=== PATIENT | female | born 2000 | race Caucasian/White ===

== ENCOUNTER 2023-06-05 21:13 | Inpatient (IN) | payer OTHER ==
[~2023-06-05] VITALS: Ht 162.6 cm; Wt 97.6 kg
[2023-06-05] MEDS ORDERED: WELLTAB40 PO ×2 (21:24→23:02)
[2023-06-05 21:51] LABS: HEMATOCRIT 37.6 % (36.0-47.0); HEMOGLOBIN 12.4 g/dl (12.0-15.5); MEAN CORPUSCULAR HEMOGLOBIN 29.5 pg (27.0-33.0); MEAN CORPUSCULAR VOLUME 89.3 fl (80.0-96.0); PLATELET COUNT, AUTOMATED 238 10^3/uL (150-450); RED BLOOD COUNT 4.21 10^6/uL (4.00-5.40); WHITE BLOOD COUNT 7.7 10^3/uL (4.0-10.0)
[2023-06-05 22:13] LABS: AMPHETAMINES LEVEL URINE NEGATIVE (NEGATIVE); BARBITURATES URINE NEGATIVE (NEGATIVE); BENZODIAZEPINES URINE NEGATIVE (NEGATIVE); COCAINE METABOLITE URINE NEGATIVE (NEGATIVE); METHADONE URINE NEGATIVE (NEGATIVE); OPIATES URINE NEGATIVE (NEGATIVE)
[2023-06-05 22:14] LABS: CANNABINOIDS URINE NEGATIVE (NEGATIVE); PHENCYCLIDINE URINE NEGATIVE (NEGATIVE)
[2023-06-05 22:15] LABS: ETHYL ALCOHOL (ETHANOL) < 0.003 % (0.000-0.010)
[2023-06-05 22:17] LABS: ACETAMINOPHEN LEVEL < 2.0 UG/ML (10.0-20.0); ALBUMIN 3.6 G/DL (3.2-5.2); ALKALINE PHOSPHATASE 103 U/L (46-116); ALT/SGPT 20 U/L (7.0-40); AST/SGOT 18 U/L (<34); BILIRUBIN,DIRECT < 0.1 MG/DL (<0.4); BILIRUBIN,TOTAL 0.2 MG/DL (0.3-1.2); BLOOD UREA NITROGEN 15 MG/DL (9-23); CALCIUM LEVEL 8.9 MG/DL (8.5-10.1); CARBON DIOXIDE LEVEL 25 MMOL/L (20-31); CHLORIDE LEVEL 109 MMOL/L (98-107); CREATININE FOR GFR 0.69 MG/DL (0.55-1.30); GLOMERULAR FILTRATION RATE > 60.0 (>60); GLUCOSE, FASTING 94 MG/DL (60-100); POTASSIUM SERUM 3.9 MMOL/L (3.5-5.1); SALICYLATE LEVEL < 3.0 MG/DL (<30); SODIUM LEVEL 141 MMOL/L (136-145); TOTAL PROTEIN 6.8 G/DL (5.7-8.2)
[2023-06-05 22:21] LABS: THYROID STIMULATING HORMONE 0.769 uIU/ML (0.55-4.78)
[2023-06-05 22:51] LABS: HCG, SERUM QUALITATIVE NEGATIVE (NEGATIVE)
[2023-06-05] MEDS ORDERED: HOME MED LIST COMPLETE! XX SCH (23:05)
[2023-06-06] MEDS ORDERED: ACETAMINOPHEN 325 MG TAB PO ONE (09:45)
[2023-06-06] MEDS ORDERED: MAALOX 30 ML SUSP *UDC PO PRN (14:40)
[2023-06-06] MEDS ORDERED: diphenhydrAMINE 25MG CAP PO PRN (14:40)
[2023-06-06] MEDS ORDERED: MOM 30ML SUSPENSION UDC PO PRN (14:40)
[2023-06-06] MEDS: IBUPROFEN 400MG TAB PO PRN (15:15)
[2023-06-06 15:37] VITALS: BP 134/83; TEMP 97.4; O2SAT 100
[2023-06-06] MEDS: ACETAMINOPHEN TAB 650MG DOSE (2X325MG) PO PRN (20:31)
[2023-06-06] MEDS ORDERED: buPROPion **XL** TABLET 150MG (WELLBUTRIN XL) PO SCH (21:00)
[2023-06-06] MEDS: traZODone 50 MG TAB PO PRN (21:47)
[2023-06-07 06:17] VITALS: BP 128/75; TEMP 98; O2SAT 100
[2023-06-07] MEDS ORDERED: NICOTINE 14 MG/24 HR TRANSDERMAL TD SCH (09:00)
[2023-06-07] MEDS: buPROPion **XL** TABLET 150MG (WELLBUTRIN XL) PO SCH (09:35)
[2023-06-07] MEDS: IBUPROFEN 400MG TAB PO PRN (09:36)
[2023-06-07] MEDS: lamoTRIgine 25MG TAB PO SCH (14:15)
[2023-06-07] MEDS: ACETAMINOPHEN TAB 650MG DOSE (2X325MG) PO PRN (15:23)
[2023-06-07 18:54] VITALS: BP 141/77; TEMP 97.5
[2023-06-08] MEDS: traZODone 50 MG TAB PO PRN ×2 (01:30→21:10)
[2023-06-08 06:11] VITALS: BP 113/66; TEMP 97.5; O2SAT 98
[2023-06-08] MEDS: buPROPion **XL** TABLET 150MG (WELLBUTRIN XL) PO SCH (09:53)
[2023-06-08] MEDS: lamoTRIgine 25MG TAB PO SCH (09:53)
[2023-06-08] MEDS: ACETAMINOPHEN TAB 650MG DOSE (2X325MG) PO PRN (11:40)
[2023-06-08 18:39] VITALS: BP 129/71; TEMP 97.1; O2SAT 98
[2023-06-09 06:41] VITALS: BP 147/65; TEMP 97; O2SAT 98
[2023-06-09] MEDS ORDERED: WELLTAB40 PO (08:03)
[2023-06-09] MEDS ORDERED: LAMI25TA PO (08:03)
[2023-06-09] MEDS ORDERED: TRAZ-252 PO (08:03)
[2023-06-09] MEDS: buPROPion **XL** TABLET 150MG (WELLBUTRIN XL) PO SCH (08:39)
[2023-06-09] MEDS: lamoTRIgine 25MG TAB PO SCH (08:39)
[2023-06-09] MEDS ORDERED: ONDANSETRON 4MG ORAL DISINTEGRATING TAB PO ONE (18:00)
[2023-06-09 18:20] VITALS: BP 139/79; TEMP 96.5
[2023-06-09] MEDS: traZODone 50 MG TAB PO PRN (20:26)
[2023-06-10 06:51] VITALS: BP 105/61; TEMP 98.5; O2SAT 98
[2023-06-10] MEDS: buPROPion **XL** TABLET 150MG (WELLBUTRIN XL) PO SCH (09:13)
[2023-06-10] MEDS: lamoTRIgine 25MG TAB PO SCH (09:14)
== END 2023-06-10 12:10 | disposition home or self-care (01) | DRG 885 ==
LOC: M ED 21:13 → M ED INP 06-06 14:36 → M PSY 06-06 15:31
PROVIDERS: ADMIT Student in an Organized Health Care Education/Training Program; ATTEND Student in an Organized Health Care Education/Training Program
DX: F33.1 Major depressive disorder, recurrent, moderate (principal); R45.851 Suicidal ideations; F41.9 Anxiety disorder, unspecified; Z81.8 Family history of other mental and behavioral disorders; Z79.899 Other long term (current) drug therapy; Z63.31 Absence of family member due to military deployment